=== PATIENT | male | born 1945 | race Asian ===

== ENCOUNTER 2020-02-08 14:18 | Emergency (ER) | payer OTHER ==
[~2020-02-08] VITALS: Ht 172.7 cm; Wt 68.9 kg
[2020-02-08 14:18] VITALS: BP_SYST 157
[2020-02-08 15:19] LABS: BASOPHILS # (AUTO) 0.1 K/uL (0.0-0.2); BASOPHILS % (AUTO) 0.8 % (0.0-2.0); EOSINOPHILS # (AUTO) 0.3 K/uL (0.0-0.4); EOSINOPHILS % (AUTO) 3.6 % (0.0-4.0); HEMATOCRIT 47.2 % (36-54); HEMOGLOBIN 15.9 g/dL (14.0-18.0); LYMPHOCYTES # (AUTO) 2.2 K/uL (1.0-5.5); LYMPHOCYTES % (AUTO) 27.1 % (20.5-51.5); MEAN CORPUSCULAR HEMOGLOBIN 30 pg (27-31); MEAN CORPUSCULAR HGB CONC 34 % (32-36); MEAN CORPUSCULAR VOLUME 88 fL (79.0-98.0); MONOCYTES # (AUTO) 0.7 K/uL (0.0-1.0); MONOCYTES % (AUTO) 8.5 % (1.7-9.3); NEUTROPHILS # (AUTO) 4.8 K/uL (1.8-7.7); PLATELET COUNT (AUTO) 261 K/uL (130-430); RED BLOOD CELL COUNT(AUTO) 5.35 MIL/uL (4.2-6.2); RED CELL DISTRIBUTION WIDTH 13.4 % (9.0-15.0)
[2020-02-08 15:22] LABS: ANION GAP 7 (5-15); CHLORIDE 100 mmol/L (98-107); CREATININE 1.24 mg/dL (0.55-1.30); GLUCOSE 151 mg/dL (70-99); POTASSIUM 4.5 mmol/L (3.5-5.1); SODIUM SERUM 137 mmol/L (136-145); UREA NITROGEN, BLOOD 13 mg/dL (8-21)
[2020-02-08 15:31] LABS: ALANINE AMINOTRANSFERASE 31 U/L (12-78); ALBUMIN 4.6 g/dL (3.4-4.8); ASPARTATE AMINOTRANSFERASE 19 U/L (10-37); LIPASE 120 U/L (73-393); TOTAL BILIRUBIN 0.5 mg/dL (0.0-1.0)
[2020-02-08 17:11] VITALS: BP_SYST 131
== END 2020-02-08 17:11 | disposition home or self-care (01) ==
LOC: SED 14:18
DX: R10.11 Right upper quadrant pain (principal)
CPT/HCPCS: 36415; 71045; 76376; 80053; 83690-TC; 84484; 85025; 93005; 99285

== ENCOUNTER 2022-04-25 10:35 | Emergency (ER) | payer OTHER ==
[~2022-04-25] VITALS: Ht 175.3 cm; Wt 68.0 kg
[2022-04-25 10:35] VITALS: BP_SYST 146
--- NOTE | 2022-04-25 10:40 | NUR ---
Patient triaged and placed in waiting room. VSS and patient appears in no acute distress at this time. Accompanied by , awaiting available bed, and MD notified of need for MSE.
--- NOTE | 2022-04-25 11:01 | NUR ---
PT STATES PAIN WITH URINATION AND PAIN TRAVELS TO BLADDER.
[2022-04-25 11:16] LABS: BILIRUBIN,URINE NEGATIVE (NEGATIVE); BLOOD, URINE NEGATIVE (NEGATIVE); CLARITY/URINE CLEAR (CLEAR); COLOR,URINE YELLOW (YELLOW); GLUCOSE,URINE NEGATIVE (NEGATIVE); KETONES,URINE NEGATIVE (NEGATIVE); LEUKOCYTE ESTERASE ,URINE TRACE (NEGATIVE); NITRITE, URINE NEGATIVE (NEGATIVE); PH,URINE 6.5 (5.0-8.0); PROTEIN URINE NEGATIVE (NEGATIVE); UROBILINOGEN,URINE 0.2 (0.2-1.0)
[2022-04-25 11:26] LABS: BACTERIA,URINE RARE /HPF (None Seen); RBC,URINE 0-3 /HPF (0-3)
[2022-04-25 11:27] LABS: MUCUS,URINE 1+ /LPF (None Seen)
--- NOTE | 2022-04-25 13:20 | NUR ---
DR GONZALEZ OUT TO TRIAGE ROOM FOR RE-EVALUATION
--- NOTE | 2022-04-25 13:43 | NUR ---
Patient given written and verbal discharge instructions and verbalizes understanding. ER MD discussed with patient the results and treatment provided. Patient in stable condition. ID arm band removed. Rx of DEFLEX given. Patient educated on pain management and to follow up with PMD. Pain Scale 0/10. Opportunity for questions provided and answered. Medication side effect fact sheet provided.
== END 2022-04-25 13:43 | disposition home or self-care (01) ==
LOC: SED 10:35
DX: N39.0 Urinary tract infection, site not specified (principal); R30.0 Dysuria; R35.0 Frequency of micturition; Z79.899 Other long term (current) drug therapy
CPT/HCPCS: 81000; 87086; 99283